=== PATIENT | male | born 1970 | race Caucasian/White ===

== ENCOUNTER 2019-03-28 17:48 | Inpatient (IN) | payer MEDICAID ==
[~2019-03-28] VITALS: Ht 177.8 cm; Wt 114.3 kg
[~2019-03-28 17:48] MED LIST: BUSP15 PO; CLON-570 PO; TERB12CR3
[2019-03-28] MEDS ORDERED: TRAZ-220 PO (21:01)
[2019-03-28] MEDS ORDERED: ALPR1TAB7 PO (21:01)
[2019-03-28] MEDS ORDERED: OLAN10TA3 PO (21:01)
[2019-03-28] MEDS ORDERED: HALOPERIDOL 5 MG TABLET PO PRN (21:15)
[2019-03-28 21:25] VITALS: BP 122/76
[2019-03-28 21:40] VITALS: BP 125/75
[2019-03-28] MEDS ORDERED: GuaiFENesin/D-METHORPHAN [SUGAR-FREE] 200-20MG/10 ML SYRUP UDCUP PO PRN (22:30)
[2019-03-28] MEDS ORDERED: MAG HYDROX/AL HYDROX/SIMETH ES 30 ML SUSPENSION UDCUP PO PRN (22:30)
[2019-03-28] MEDS ORDERED: DOCUSATE SODIUM 100 MG CAPSULE PO PRN (22:30)
[2019-03-28] MEDS ORDERED: ONDANSETRON HCL 4 MG TABLET PO PRN (22:30)
[2019-03-28] MEDS ORDERED: IBUPROFEN 400 MG TABLET PO PRN (22:30)
[2019-03-28] MEDS ORDERED: ACETAMINOPHEN 325 MG TABLET PO PRN (22:30)
[2019-03-28] MEDS ORDERED: NICOTINE 14 MG/24 HOUR PATCH TD PRN (22:30)
[2019-03-28] MEDS ORDERED: ALBUTEROL SULFATE HFA 90 MCG/PUFF 8 GM INHALER IH PRN (22:30)
[2019-03-28] MEDS ORDERED: MAGNESIUM HYDROXIDE SUSPENSION 30 ML UDCUP PO PRN (22:30)
[2019-03-28] MEDS ORDERED: CloNIDine HCL 0.1 MG TABLET PO PRN (22:30)
[2019-03-28] MEDS ORDERED: LOPERAMIDE HCL 2 MG CAPSULE PO PRN (22:30)
[2019-03-28] MEDS ORDERED: PETROLATUM,WHITE 28 GM JELLY TP PRN (22:30)
[2019-03-28] MEDS: LORazepam 2 MG TABLET PO PRN (22:36)
[2019-03-29] MEDS: ZOLPIDEM TARTRATE 10 MG TABLET PO PRN (00:30)
[2019-03-29 01:31] VITALS: BP 139/88
[2019-03-29] MEDS: LORazepam 2 MG TABLET PO PRN ×3 (05:22→16:54)
[2019-03-29 07:46] LABS: BASOPHILS % (AUTO) 0.8 % (0.0-2.0); EOSINOPHILS % (AUTO) 0.9 % (1.0-6.0); HEMATOCRIT 40.8 % (41-53); HEMOGLOBIN 13.2 g/dL (13.5-17.5); LYMPHOCYTES # (AUTO) 2.1 K/uL (1.0-4.8); LYMPHOCYTES % (AUTO) 27.7 % (22.0-44.0); MEAN CORPUSCULAR HGB CONC 32.2 G/dL (31.0-37.0); MEAN CORPUSCULAR VOLUME 87 fL (80-100); MONOCYTES # (AUTO) 0.9 K/uL (0.1-1.0); MONOCYTES % (AUTO) 11.9 % (2.0-9.0); NEUTROPHILS # (AUTO) 4.4 K/uL (1.8-7.7); NEUTROPHILS % (AUTO) 58.7 % (40.0-70.0); PLATELET COUNT (AUTO) 246 K/uL (150-450); RED CELL DISTRIBUTION WIDTH 14.9 % (11.5-14.5)
[2019-03-29 08:03] LABS: HEMOGLOBIN A1C 5.7 % (4.5-6.2)
[2019-03-29 08:13] LABS: ALANINE AMINOTRANSFERASE 29 U/L (12-78); ALKALINE PHOSPHATASE 83 U/L (46-116); ANION GAP 8 mmol/L (8-16); ASPARTATE AMINOTRANSFERASE 21 U/L (15-37); BILIRUBIN,TOTAL 0.5 mg/dL (0.1-1.0); CALCIUM, TOTAL 8.8 mg/dL (8.8-10.5); CARBON DIOXIDE 26 mmol/L (22-29); CHLORIDE 105 mmol/L (98-107); CHOL/HDL RATIO 5.6 (4.2-7.3); CHOLESTEROL 185 mg/dL (131-200); CREATININE 0.94 mg/dL (0.60-1.30); FREE T4 (FREE THYROXINE) 1.18 ng/dL (0.76-1.46); GLOMERULAR FILTR. RATE CALC > 60 mL/min (>60); GLUCOSE,RANDOM 87 mg/dL (70-110); HDL CHOLESTEROL 33 mg/dL (40-60); LDL CHOL (CALC.) 136 mg/dL (0-130); POTASSIUM 4.4 mmol/L (3.5-5.1); SODIUM SERUM 139 mmol/L (136-145); THYROID STIMULATING HORMONE 1.35 uIU/mL (0.36-3.74); TOTAL PROTEIN, SERUM 6.8 g/dL (6.4-8.2); TRIGLYCERIDES 82 mg/dL (15-150); UREA NITROGEN, BLOOD 19 mg/dL (7-18)
[2019-03-29 08:36] VITALS: BP 139/89
[2019-03-29] MEDS: BACITRACIN 28.4 GM OINTMENT TP SCH ×2 (09:39→16:55)
[2019-03-29] MEDS: OLANZapine 10 MG TABLET PO SCH ×2 (11:54→20:41)
[2019-03-29 16:09] VITALS: BP 124/74
[2019-03-30 00:04] VITALS: BP 140/82
[2019-03-30] MEDS: ZOLPIDEM TARTRATE 10 MG TABLET PO PRN ×2 (00:06→21:04)
[2019-03-30] MEDS: LORazepam 2 MG TABLET PO PRN ×4 (00:06→22:13)
[2019-03-30 08:17] VITALS: BP 112/60
[2019-03-30] MEDS: OLANZapine 10 MG TABLET PO SCH ×2 (08:54→20:28)
[2019-03-30] MEDS: BACITRACIN 28.4 GM OINTMENT TP SCH ×2 (08:55→16:49)
[2019-03-30 16:11] VITALS: BP 106/73
[2019-03-31 04:54] VITALS: BP 110/68
[2019-03-31] MEDS: LORazepam 2 MG TABLET PO PRN ×4 (05:24→21:03)
[2019-03-31 08:34] VITALS: BP 116/77
[2019-03-31] MEDS: OLANZapine 10 MG TABLET PO SCH ×2 (09:19→20:39)
[2019-03-31] MEDS: BACITRACIN 28.4 GM OINTMENT TP SCH ×2 (09:19→16:35)
[2019-03-31] MEDS ORDERED: OLANZapine 5 MG TABLET PO ONE (09:45)
[2019-03-31 16:49] VITALS: BP 129/63
[2019-03-31] MEDS: ZOLPIDEM TARTRATE 10 MG TABLET PO PRN (21:54)
[2019-04-01 04:05] VITALS: BP 126/72
[2019-04-01] MEDS: LORazepam 2 MG TABLET PO PRN ×4 (06:06→20:02)
[2019-04-01 08:31] VITALS: BP 111/60
[2019-04-01] MEDS: BACITRACIN 28.4 GM OINTMENT TP SCH ×2 (08:43→16:36)
[2019-04-01] MEDS: OLANZapine 10 MG TABLET PO SCH ×2 (08:43→20:41)
[2019-04-01 16:14] VITALS: BP 112/61
[2019-04-01] MEDS: ZOLPIDEM TARTRATE 10 MG TABLET PO PRN (21:05)
[2019-04-02 02:49] VITALS: BP 130/81
[2019-04-02] MEDS: LORazepam 2 MG TABLET PO PRN (05:33)
[2019-04-02 05:35] VITALS: BP 132/88
[2019-04-02] MEDS: OLANZapine 10 MG TABLET PO SCH (08:31)
[2019-04-02] MEDS: BACITRACIN 28.4 GM OINTMENT TP SCH (08:34)
[2019-04-02 08:39] VITALS: BP 108/73
== END 2019-04-02 10:05 | disposition home or self-care (01) | DRG 750 ==
LOC: B2S 21:23
DX: F25.1 Schizoaffective disorder, depressive type (principal); E78.5 Hyperlipidemia, unspecified; G89.29 Other chronic pain; I10 Essential (primary) hypertension; M19.90 Unspecified osteoarthritis, unspecified site; M51.26 Other intervertebral disc displacement, lumbar region; M54.2 Cervicalgia; M54.9 Dorsalgia, unspecified; Z88.8 Allergy status to other drugs, medicaments and biological substances; Z79.899 Other long term (current) drug therapy
CPT/HCPCS: 83036; 84439; 84443

== ENCOUNTER 2020-08-07 19:02 | Inpatient (IN) | payer MEDICAID, OTHER ==
[~2020-08-07] VITALS: Ht 177.8 cm; Wt 122.6 kg
[~2020-08-07 19:02] MED LIST changes: -BUSP15 PO; -CLON-570 PO; +OLAN10TA3 PO; -TERB12CR3
[2020-08-07] MEDS ORDERED: ZOLPIDEM TARTRATE 10 MG TABLET PO PRN (21:45)
[2020-08-07] MEDS ORDERED: HALOPERIDOL 5 MG TABLET PO PRN (21:45)
[2020-08-07 21:49] LABS: COVID AG,FIA SOURCE NASAL SWAB
[2020-08-07 22:08] LABS: BASOPHILS % (AUTO) 0.6 % (0.0-2.0); EOSINOPHILS % (AUTO) 1.5 % (1.0-6.0); LYMPHOCYTES # (AUTO) 2.7 K/uL (1.0-4.8); LYMPHOCYTES % (AUTO) 27.1 % (22.0-44.0); MEAN CORPUSCULAR HEMOGLOBIN 29.1 pg (26.0-34.0); MEAN CORPUSCULAR HGB CONC 33.4 G/dL (31.0-37.0); MEAN CORPUSCULAR VOLUME 87 fL (80-100); MONOCYTES # (AUTO) 0.8 K/uL (0.1-1.0); MONOCYTES % (AUTO) 7.6 % (2.0-9.0); NEUTROPHILS # (AUTO) 6.3 K/uL (1.8-7.7); NEUTROPHILS % (AUTO) 63.2 % (40.0-70.0); PLATELET COUNT (AUTO) 280 K/uL (150-450); RED BLOOD CELL COUNT(AUTO) 5.16 MIL/uL (4.50-5.90); RED CELL DISTRIBUTION WIDTH 14.8 % (11.5-14.5)
[2020-08-07 22:18] LABS: ANION GAP 7 mmol/L (8-16); CALCIUM, TOTAL 9.7 mg/dL (8.8-10.5); CARBON DIOXIDE 30 mmol/L (22-29); CHLORIDE 105 mmol/L (98-107); GLOMERULAR FILTR. RATE CALC > 60 mL/min (>60); GLUCOSE,RANDOM 101 mg/dL (70-110); POTASSIUM 4.8 mmol/L (3.5-5.1); SODIUM SERUM 142 mmol/L (136-145); UREA NITROGEN, BLOOD 20 mg/dL (7-18)
[2020-08-07 22:23] LABS: ALANINE AMINOTRANSFERASE 56 U/L (12-78); ALBUMIN 3.9 g/dL (3.4-5.0); ALKALINE PHOSPHATASE 106 U/L (46-116); ASPARTATE AMINOTRANSFERASE 26 U/L (15-37); BILIRUBIN,TOTAL 0.6 mg/dL (0.1-1.0); TOTAL PROTEIN, SERUM 7.6 g/dL (6.4-8.2)
[2020-08-07 23:02] LABS: AMPHET/METH SCREEN,URINE NEGATIVE (NEGATIVE); BARBITURATE SCREEN, URINE NEGATIVE (NEGATIVE); BENZODIAZEPINES SCREEN,URINE NEGATIVE (NEGATIVE); CANNABINOID SCREEN,URINE NEGATIVE (NEGATIVE); COCAINE SCREEN,URINE NEGATIVE (NEGATIVE); METHADONE SCREEN, URINE NEGATIVE (NEGATIVE); OPIATE SCREEN,URINE NEGATIVE (NEGATIVE)
[2020-08-07 23:03] LABS: PHENCYCLIDINE SCREEN,URINE NEGATIVE (NEGATIVE)
[2020-08-08 03:05] VITALS: BP 127/77
[2020-08-08] MEDS: LORazepam 2 MG TABLET PO PRN ×2 (03:17→11:44)
[2020-08-08] MEDS ORDERED: INFLUENZA VIRUS VACCINE QVS 2020-21 (6MO+)/PF 60 MCG/0.5 ML SYRINGE IM ONE (03:45)
[2020-08-08] MEDS ORDERED: PNEUMOCOCCAL VACCINE POLYVALENT 0.5 ML VIAL [PPSV23] IM ONE (03:45)
[2020-08-08] MEDS ORDERED: MAGNESIUM HYDROXIDE SUSPENSION 30 ML UDCUP PO PRN (08:00)
[2020-08-08] MEDS ORDERED: NICOTINE 14 MG/24 HOUR PATCH TD PRN (08:00)
[2020-08-08] MEDS ORDERED: LOPERAMIDE HCL 2 MG CAPSULE PO PRN (08:00)
[2020-08-08] MEDS ORDERED: IBUPROFEN 400 MG TABLET PO PRN (08:00)
[2020-08-08] MEDS ORDERED: ALBUTEROL SULFATE HFA 90 MCG/PUFF 8 GM INHALER IH PRN (08:00)
[2020-08-08] MEDS ORDERED: GuaiFENesin/D-METHORPHAN [SUGAR-FREE] 200-20MG/10 ML SYRUP UDCUP PO PRN (08:00)
[2020-08-08] MEDS ORDERED: PETROLATUM,WHITE 28 GM JELLY TP PRN (08:00)
[2020-08-08] MEDS ORDERED: ONDANSETRON HCL 4 MG TABLET PO PRN (08:00)
[2020-08-08] MEDS ORDERED: DOCUSATE SODIUM 100 MG CAPSULE PO PRN (08:00)
[2020-08-08] MEDS ORDERED: CloNIDine HCL 0.1 MG TABLET PO PRN (08:00)
[2020-08-08] MEDS ORDERED: ACETAMINOPHEN 325 MG TABLET PO PRN (08:00)
[2020-08-08 08:07] LABS: CHOL/HDL RATIO 6.4 (4.2-7.3)
[2020-08-08 08:28] VITALS: BP 113/69
[2020-08-08] MEDS: NICOTINE 21 MG/24 HOUR PATCH TD SCH (09:00)
[2020-08-08] MEDS: OLANZapine 10 MG TABLET PO SCH ×2 (11:44→20:04)
[2020-08-08 16:12] VITALS: BP 130/70
[2020-08-08] MEDS: TraZODone HCL 100 MG TABLET PO SCH (20:04)
[2020-08-09 05:19] VITALS: BP 126/74
[2020-08-09 08:04] VITALS: BP 107/68
[2020-08-09] MEDS: NICOTINE 21 MG/24 HOUR PATCH TD SCH (08:33)
[2020-08-09] MEDS: OLANZapine 10 MG TABLET PO SCH ×2 (08:33→20:15)
[2020-08-09 16:05] VITALS: BP 102/65
[2020-08-09] MEDS: TraZODone HCL 100 MG TABLET PO SCH (20:15)
[2020-08-09] MEDS: LORazepam 2 MG TABLET PO PRN (20:15)
[2020-08-10 04:41] VITALS: BP 112/60
[2020-08-10 08:23] VITALS: BP 116/76
[2020-08-10] MEDS: OLANZapine 10 MG TABLET PO SCH ×2 (08:27→20:08)
[2020-08-10] MEDS: LORazepam 2 MG TABLET PO PRN ×3 (08:27→18:34)
[2020-08-10] MEDS: NICOTINE 21 MG/24 HOUR PATCH TD SCH (08:29)
[2020-08-10 16:36] VITALS: BP 119/80
[2020-08-10] MEDS: TraZODone HCL 100 MG TABLET PO SCH (20:08)
[2020-08-11 03:31] VITALS: BP 114/72
[2020-08-11 08:07] VITALS: BP 112/68
[2020-08-11] MEDS: OLANZapine 10 MG TABLET PO SCH ×2 (08:24→20:24)
[2020-08-11] MEDS: NICOTINE 21 MG/24 HOUR PATCH TD SCH (08:25)
[2020-08-11] MEDS: LORazepam 2 MG TABLET PO PRN (16:07)
[2020-08-11 16:30] VITALS: BP 119/68
[2020-08-11] MEDS: TraZODone HCL 100 MG TABLET PO SCH (20:24)
[2020-08-12 05:28] VITALS: BP 126/82
[2020-08-12 08:11] VITALS: BP 111/63
[2020-08-12] MEDS: NICOTINE 21 MG/24 HOUR PATCH TD SCH (08:50)
[2020-08-12] MEDS: OLANZapine 10 MG TABLET PO SCH ×2 (08:50→20:16)
[2020-08-12] MEDS: LORazepam 2 MG TABLET PO PRN ×2 (10:29→16:06)
[2020-08-12 16:16] VITALS: BP 127/66
[2020-08-12] MEDS: TraZODone HCL 100 MG TABLET PO SCH (20:16)
[2020-08-13 05:20] VITALS: BP 115/62
[2020-08-13] MEDS: OLANZapine 10 MG TABLET PO SCH ×2 (08:43→20:10)
[2020-08-13] MEDS: NICOTINE 21 MG/24 HOUR PATCH TD SCH (09:00)
[2020-08-13 09:27] VITALS: BP 115/66
[2020-08-13] MEDS: LORazepam 2 MG TABLET PO PRN ×2 (10:06→16:44)
[2020-08-13] MEDS: MAG HYDROX/AL HYDROX/SIMETH ES 30 ML SUSPENSION UDCUP PO PRN (14:21)
[2020-08-13 16:14] VITALS: BP 124/79
[2020-08-13] MEDS: TraZODone HCL 100 MG TABLET PO SCH (20:10)
[2020-08-14 00:23] VITALS: BP 132/82
[2020-08-14 08:24] VITALS: BP 117/71
[2020-08-14] MEDS: NICOTINE 21 MG/24 HOUR PATCH TD SCH (09:11)
[2020-08-14] MEDS: OMEGA-3/DHA/EPA/FISH OIL 1,000 MG CAPSULE PO SCH (09:11)
[2020-08-14] MEDS: OLANZapine 10 MG TABLET PO SCH ×2 (09:11→20:09)
[2020-08-14] MEDS: LORazepam 2 MG TABLET PO PRN ×2 (09:22→16:52)
[2020-08-14] MEDS: MAG HYDROX/AL HYDROX/SIMETH ES 30 ML SUSPENSION UDCUP PO PRN (14:05)
[2020-08-14 16:00] VITALS: BP 111/77
[2020-08-14] MEDS: TraZODone HCL 100 MG TABLET PO SCH (20:09)
[2020-08-15 04:45] VITALS: BP 123/88
[2020-08-15] MEDS: LORazepam 2 MG TABLET PO PRN ×2 (07:40→16:09)
[2020-08-15] MEDS: NICOTINE 21 MG/24 HOUR PATCH TD SCH (08:10)
[2020-08-15] MEDS: OLANZapine 10 MG TABLET PO SCH ×2 (08:10→20:09)
[2020-08-15] MEDS: OMEGA-3/DHA/EPA/FISH OIL 1,000 MG CAPSULE PO SCH (08:10)
[2020-08-15 08:19] VITALS: BP 124/86
[2020-08-15] MEDS: MAG HYDROX/AL HYDROX/SIMETH ES 30 ML SUSPENSION UDCUP PO PRN (14:16)
[2020-08-15 16:00] VITALS: BP 138/76
[2020-08-15] MEDS: TraZODone HCL 100 MG TABLET PO SCH (20:09)
[2020-08-16 04:16] VITALS: BP 122/78
[2020-08-16 08:10] VITALS: BP 132/81
[2020-08-16] MEDS: OMEGA-3/DHA/EPA/FISH OIL 1,000 MG CAPSULE PO SCH (08:57)
[2020-08-16] MEDS: OLANZapine 10 MG TABLET PO SCH (08:57)
[2020-08-16] MEDS: LORazepam 2 MG TABLET PO PRN (08:57)
[2020-08-16] MEDS: NICOTINE 21 MG/24 HOUR PATCH TD SCH (08:58)
[2020-08-16] MEDS ORDERED: TRAZ-257 PO (09:47)
== END 2020-08-16 12:32 | disposition home or self-care (01) | DRG 750 ==
LOC: EMS 19:04 → B3A 21:35
PROVIDERS: ADMIT Psychiatry & Neurology Psychiatry; ATTEND Psychiatry & Neurology Psychiatry
DX: F25.1 Schizoaffective disorder, depressive type (principal); E78.5 Hyperlipidemia, unspecified; F17.210 Nicotine dependence, cigarettes, uncomplicated; F41.9 Anxiety disorder, unspecified; I10 Essential (primary) hypertension; M19.90 Unspecified osteoarthritis, unspecified site; R45.851 Suicidal ideations; Z20.828 Contact with and (suspected) exposure to other viral communicable diseases; Z59.0 Homelessness; Z91.14 Patient's other noncompliance with medication regimen; Z88.8 Allergy status to other drugs, medicaments and biological substances; Z79.899 Other long term (current) drug therapy; Z28.21 Immunization not carried out because of patient refusal
CPT/HCPCS: 87426; 90686; 90732; G0480

== ENCOUNTER 2020-09-24 08:14 | Inpatient (IN) | payer MEDICAID ==
[~2020-09-24] VITALS: Ht 177.8 cm; Wt 97.3 kg
[~2020-09-24 08:14] MED LIST changes: +TRAZ-257 PO
[2020-09-24] MEDS ORDERED: HALOPERIDOL 5 MG TABLET PO ONE (08:45)
[2020-09-24 08:57] LABS: BASOPHILS % (AUTO) 0.6 % (0.0-2.0); EOSINOPHILS % (AUTO) 1.5 % (1.0-6.0); HEMATOCRIT 39.8 % (41-53); HEMOGLOBIN 13.1 g/dL (13.5-17.5); LYMPHOCYTES # (AUTO) 1.8 K/uL (1.0-4.8); LYMPHOCYTES % (AUTO) 23.4 % (22.0-44.0); MEAN CORPUSCULAR HEMOGLOBIN 29.5 pg (26.0-34.0); MEAN CORPUSCULAR HGB CONC 32.9 G/dL (31.0-37.0); MEAN CORPUSCULAR VOLUME 90 fL (80-100); MONOCYTES # (AUTO) 0.6 K/uL (0.1-1.0); MONOCYTES % (AUTO) 7.4 % (2.0-9.0); NEUTROPHILS # (AUTO) 5.1 K/uL (1.8-7.7); NEUTROPHILS % (AUTO) 67.1 % (40.0-70.0); PLATELET COUNT (AUTO) 213 K/uL (150-450); RED BLOOD CELL COUNT(AUTO) 4.45 MIL/uL (4.50-5.90)
[2020-09-24 09:29] LABS: ANION GAP 6 mmol/L (8-16); CALCIUM, TOTAL 8.5 mg/dL (8.8-10.5); CARBON DIOXIDE 27 mmol/L (22-29); CHLORIDE 107 mmol/L (98-107); CREATININE 1.07 mg/dL (0.60-1.30); GLOMERULAR FILTR. RATE CALC > 60 mL/min (>60); GLUCOSE,RANDOM 98 mg/dL (70-110); POTASSIUM 4.4 mmol/L (3.5-5.1); SODIUM SERUM 140 mmol/L (136-145); UREA NITROGEN, BLOOD 17 mg/dL (7-18)
[2020-09-24 09:35] LABS: ALANINE AMINOTRANSFERASE 25 U/L (12-78); ALBUMIN 3.3 g/dL (3.4-5.0); ALKALINE PHOSPHATASE 87 U/L (46-116); ASPARTATE AMINOTRANSFERASE 22 U/L (15-37); TOTAL PROTEIN, SERUM 6.9 g/dL (6.4-8.2)
[2020-09-24 09:42] LABS: COVID AG,FIA SOURCE NASOPHARYNGEAL
[2020-09-24] MEDS ORDERED: ZOLPIDEM TARTRATE 10 MG TABLET PO PRN (09:45)
[2020-09-24] MEDS ORDERED: LORazepam 2 MG TABLET PO PRN (09:45)
[2020-09-24] MEDS ORDERED: HALOPERIDOL 5 MG TABLET PO PRN (09:45)
[2020-09-24] MEDS ORDERED: IBUPROFEN 400 MG TABLET PO PRN (21:45)
[2020-09-24] MEDS ORDERED: PETROLATUM,WHITE 28 GM JELLY TP PRN (21:45)
[2020-09-24] MEDS ORDERED: LOPERAMIDE HCL 2 MG CAPSULE PO PRN (21:45)
[2020-09-24] MEDS ORDERED: ACETAMINOPHEN 325 MG TABLET PO PRN (21:45)
[2020-09-24] MEDS ORDERED: ONDANSETRON HCL 4 MG TABLET PO PRN (21:45)
[2020-09-24] MEDS ORDERED: DOCUSATE SODIUM 100 MG CAPSULE PO PRN (21:45)
[2020-09-24] MEDS ORDERED: ALBUTEROL SULFATE HFA 90 MCG/PUFF 8 GM INHALER IH PRN (21:45)
[2020-09-24] MEDS ORDERED: NICOTINE 14 MG/24 HOUR PATCH TD PRN (21:45)
[2020-09-24] MEDS ORDERED: GuaiFENesin/D-METHORPHAN [SUGAR-FREE] 200-20MG/10 ML SYRUP UDCUP PO PRN (21:45)
[2020-09-24] MEDS ORDERED: CloNIDine HCL 0.1 MG TABLET PO PRN (21:45)
[2020-09-24] MEDS ORDERED: MAGNESIUM HYDROXIDE SUSPENSION 30 ML UDCUP PO PRN (21:45)
[2020-09-25 08:16] LABS: CHOL/HDL RATIO 5.8 (4.2-7.3)
[2020-09-25 08:29] VITALS: BP 123/62
[2020-09-25] MEDS: OLANZapine 10 MG TABLET PO SCH ×2 (12:29→20:19)
[2020-09-25] MEDS: FLUoxetine HCL 20 MG CAPSULE PO SCH (12:29)
[2020-09-25 16:14] VITALS: BP 103/64
[2020-09-25] MEDS: TraZODone HCL 100 MG TABLET PO SCH (20:19)
[2020-09-26 06:17] VITALS: BP 116/73
[2020-09-26 08:39] VITALS: BP 104/50
[2020-09-26] MEDS: OLANZapine 10 MG TABLET PO SCH ×2 (08:54→20:25)
[2020-09-26] MEDS: FLUoxetine HCL 20 MG CAPSULE PO SCH (08:54)
[2020-09-26 16:19] VITALS: BP 112/72
[2020-09-26] MEDS: TraZODone HCL 100 MG TABLET PO SCH (20:25)
[2020-09-27 05:40] VITALS: BP 122/92
[2020-09-27 08:38] VITALS: BP 120/53
[2020-09-27] MEDS: OLANZapine 10 MG TABLET PO SCH ×2 (10:13→20:50)
[2020-09-27] MEDS: FLUoxetine HCL 20 MG CAPSULE PO SCH (10:13)
[2020-09-27 16:23] VITALS: BP 126/77
[2020-09-27] MEDS: TraZODone HCL 100 MG TABLET PO SCH (20:50)
[2020-09-28 06:17] VITALS: BP 127/82
[2020-09-28 08:38] VITALS: BP 124/78
[2020-09-28] MEDS: OLANZapine 10 MG TABLET PO SCH ×2 (08:42→20:40)
[2020-09-28] MEDS: FLUoxetine HCL 20 MG CAPSULE PO SCH (08:42)
[2020-09-28 16:17] VITALS: BP 127/84
[2020-09-28] MEDS: BACITRACIN 28 GM OINTMENT TP SCH (18:03)
[2020-09-28] MEDS: TraZODone HCL 100 MG TABLET PO SCH (20:40)
[2020-09-29 00:51] VITALS: BP 122/78
[2020-09-29 08:07] LABS: COVID AG,FIA SOURCE NASAL SWAB
[2020-09-29 08:23] VITALS: BP 117/73
[2020-09-29] MEDS: BACITRACIN 28 GM OINTMENT TP SCH ×2 (08:37→16:46)
[2020-09-29] MEDS: OLANZapine 10 MG TABLET PO SCH ×2 (08:38→20:54)
[2020-09-29] MEDS: FLUoxetine HCL 20 MG CAPSULE PO SCH (08:38)
[2020-09-29 16:27] VITALS: BP 133/76
[2020-09-29] MEDS: TraZODone HCL 100 MG TABLET PO SCH (20:54)
[2020-09-30 01:05] VITALS: BP 122/77
[2020-09-30 08:27] VITALS: BP 113/78
[2020-09-30] MEDS: FLUoxetine HCL 20 MG CAPSULE PO SCH (08:28)
[2020-09-30] MEDS: OLANZapine 10 MG TABLET PO SCH ×2 (08:28→20:11)
[2020-09-30] MEDS: BACITRACIN 28 GM OINTMENT TP SCH ×2 (08:29→17:09)
[2020-09-30 16:11] VITALS: BP 121/75
[2020-09-30] MEDS: MAG HYDROX/AL HYDROX/SIMETH ES 30 ML SUSPENSION UDCUP PO PRN (18:24)
[2020-09-30] MEDS: TraZODone HCL 100 MG TABLET PO SCH (20:12)
[2020-10-01 05:59] VITALS: BP 124/78
[2020-10-01] MEDS: BACITRACIN 28 GM OINTMENT TP SCH ×2 (08:22→16:17)
[2020-10-01] MEDS: OLANZapine 10 MG TABLET PO SCH ×2 (08:22→20:05)
[2020-10-01] MEDS: FLUoxetine HCL 20 MG CAPSULE PO SCH (08:22)
[2020-10-01 08:35] VITALS: BP 109/64
[2020-10-01] MEDS: MAG HYDROX/AL HYDROX/SIMETH ES 30 ML SUSPENSION UDCUP PO PRN (10:47)
[2020-10-01 16:27] VITALS: BP 138/74
[2020-10-01] MEDS: TraZODone HCL 100 MG TABLET PO SCH (20:05)
[2020-10-02 06:44] VITALS: BP 110/67
[2020-10-02] MEDS: OLANZapine 10 MG TABLET PO SCH ×2 (08:16→20:17)
[2020-10-02] MEDS: FLUoxetine HCL 20 MG CAPSULE PO SCH (08:16)
[2020-10-02] MEDS: BACITRACIN 28 GM OINTMENT TP SCH ×2 (08:16→17:02)
[2020-10-02 08:41] VITALS: BP 120/85
[2020-10-02 16:26] VITALS: BP 127/88
[2020-10-02] MEDS: MAG HYDROX/AL HYDROX/SIMETH ES 30 ML SUSPENSION UDCUP PO PRN (19:45)
[2020-10-02] MEDS: TraZODone HCL 100 MG TABLET PO SCH (20:16)
[2020-10-03 06:26] VITALS: BP 125/68
[2020-10-03] MEDS: OLANZapine 10 MG TABLET PO SCH ×2 (08:24→20:11)
[2020-10-03] MEDS: FLUoxetine HCL 20 MG CAPSULE PO SCH (08:24)
[2020-10-03] MEDS: BACITRACIN 28 GM OINTMENT TP SCH ×2 (08:28→16:57)
[2020-10-03 08:38] VITALS: BP 119/68
[2020-10-03 16:12] VITALS: BP 117/79
[2020-10-03] MEDS: TraZODone HCL 100 MG TABLET PO SCH (20:11)
[2020-10-04 01:13] VITALS: BP 118/67
[2020-10-04] MEDS: BACITRACIN 28 GM OINTMENT TP SCH ×2 (08:28→17:38)
[2020-10-04] MEDS: OLANZapine 10 MG TABLET PO SCH ×2 (08:28→20:40)
[2020-10-04] MEDS: FLUoxetine HCL 20 MG CAPSULE PO SCH (08:28)
[2020-10-04 08:37] VITALS: BP 108/70
[2020-10-04 16:24] VITALS: BP 117/75
[2020-10-04] MEDS: MAG HYDROX/AL HYDROX/SIMETH ES 30 ML SUSPENSION UDCUP PO PRN (16:32)
[2020-10-04] MEDS: TraZODone HCL 100 MG TABLET PO SCH (20:40)
[2020-10-05 01:07] VITALS: BP 110/70
[2020-10-05 08:54] VITALS: BP 124/68
[2020-10-05] MEDS: FLUoxetine HCL 20 MG CAPSULE PO SCH (09:57)
[2020-10-05] MEDS: OLANZapine 10 MG TABLET PO SCH ×2 (09:57→20:43)
[2020-10-05] MEDS: BACITRACIN 28 GM OINTMENT TP SCH ×2 (09:59→16:58)
[2020-10-05 16:11] VITALS: BP 120/61
[2020-10-05] MEDS: TraZODone HCL 100 MG TABLET PO SCH (20:43)
[2020-10-06 01:08] VITALS: BP 109/64
[2020-10-06 08:19] VITALS: BP 113/69
[2020-10-06] MEDS: FLUoxetine HCL 20 MG CAPSULE PO SCH (09:00)
[2020-10-06] MEDS: OLANZapine 10 MG TABLET PO SCH ×2 (09:00→20:44)
[2020-10-06] MEDS: BACITRACIN 28 GM OINTMENT TP SCH ×2 (09:00→17:26)
[2020-10-06] MEDS: LORazepam 1 MG TABLET PO PRN (14:53)
[2020-10-06 16:14] VITALS: BP 135/80
[2020-10-06] MEDS: TraZODone HCL 100 MG TABLET PO SCH (20:44)
[2020-10-07 06:50] VITALS: BP 115/83
[2020-10-07 08:35] VITALS: BP 137/89
[2020-10-07] MEDS: BACITRACIN 28 GM OINTMENT TP SCH ×2 (09:00→16:45)
[2020-10-07] MEDS: LORazepam 1 MG TABLET PO PRN ×2 (10:03→17:38)
[2020-10-07] MEDS: OLANZapine 10 MG TABLET PO SCH ×2 (10:03→20:37)
[2020-10-07] MEDS: FLUoxetine HCL 20 MG CAPSULE PO SCH (10:03)
[2020-10-07 16:28] VITALS: BP 128/78
[2020-10-07] MEDS: TraZODone HCL 100 MG TABLET PO SCH (20:37)
[2020-10-08 06:15] VITALS: BP 132/77
[2020-10-08 08:14] VITALS: BP 111/69
[2020-10-08] MEDS: FLUoxetine HCL 20 MG CAPSULE PO SCH (10:06)
[2020-10-08] MEDS: OLANZapine 10 MG TABLET PO SCH ×2 (10:07→20:27)
[2020-10-08] MEDS: BACITRACIN 28 GM OINTMENT TP SCH ×2 (10:08→17:43)
[2020-10-08 10:39] LABS: COVID AG,FIA SOURCE NASOPHARYNGEAL
[2020-10-08] MEDS: LORazepam 1 MG TABLET PO PRN ×2 (11:26→18:37)
[2020-10-08 16:13] VITALS: BP 113/71
[2020-10-08] MEDS: MAG HYDROX/AL HYDROX/SIMETH ES 30 ML SUSPENSION UDCUP PO PRN (19:15)
[2020-10-08] MEDS: TraZODone HCL 100 MG TABLET PO SCH (20:27)
[2020-10-09 06:27] VITALS: BP 115/70
[2020-10-09 08:26] VITALS: BP 115/66
[2020-10-09] MEDS: OLANZapine 10 MG TABLET PO SCH ×2 (09:10→20:27)
[2020-10-09] MEDS: FLUoxetine HCL 20 MG CAPSULE PO SCH (09:10)
[2020-10-09] MEDS: BACITRACIN 28 GM OINTMENT TP SCH ×2 (09:10→17:03)
[2020-10-09] MEDS: LORazepam 1 MG TABLET PO PRN (09:31)
[2020-10-09 17:38] VITALS: BP 119/66
[2020-10-09] MEDS: TraZODone HCL 100 MG TABLET PO SCH (20:27)
[2020-10-10 01:06] VITALS: BP 127/68
[2020-10-10] MEDS: OLANZapine 10 MG TABLET PO SCH ×2 (08:01→20:44)
[2020-10-10] MEDS: FLUoxetine HCL 20 MG CAPSULE PO SCH (08:01)
[2020-10-10] MEDS: LORazepam 1 MG TABLET PO PRN ×2 (08:02→17:21)
[2020-10-10] MEDS: BACITRACIN 28 GM OINTMENT TP SCH ×2 (08:03→16:22)
[2020-10-10 09:07] VITALS: BP 122/76
[2020-10-10 17:29] VITALS: BP 113/66
[2020-10-10] MEDS: TraZODone HCL 100 MG TABLET PO SCH (20:43)
[2020-10-11 00:57] VITALS: BP 117/72
[2020-10-11 08:47] VITALS: BP 118/63
[2020-10-11] MEDS: LORazepam 1 MG TABLET PO PRN ×2 (09:34→16:49)
[2020-10-11] MEDS: FLUoxetine HCL 20 MG CAPSULE PO SCH (09:34)
[2020-10-11] MEDS: OLANZapine 10 MG TABLET PO SCH ×2 (09:34→20:26)
[2020-10-11] MEDS: BACITRACIN 28 GM OINTMENT TP SCH ×2 (09:36→16:55)
[2020-10-11] MEDS: MAG HYDROX/AL HYDROX/SIMETH ES 30 ML SUSPENSION UDCUP PO PRN (14:23)
[2020-10-11 17:44] VITALS: BP 109/68
[2020-10-11] MEDS: TraZODone HCL 100 MG TABLET PO SCH (20:26)
[2020-10-12 00:51] VITALS: BP 122/75
[2020-10-12 08:47] VITALS: BP 135/81
[2020-10-12] MEDS: LORazepam 1 MG TABLET PO PRN ×2 (09:16→16:34)
[2020-10-12] MEDS: FLUoxetine HCL 20 MG CAPSULE PO SCH (09:16)
[2020-10-12] MEDS: OLANZapine 10 MG TABLET PO SCH ×2 (09:16→20:06)
[2020-10-12] MEDS: BACITRACIN 28 GM OINTMENT TP SCH ×2 (10:28→16:34)
[2020-10-12 16:25] VITALS: BP 109/70
[2020-10-12] MEDS: MAG HYDROX/AL HYDROX/SIMETH ES 30 ML SUSPENSION UDCUP PO PRN (16:45)
[2020-10-12] MEDS: TraZODone HCL 100 MG TABLET PO SCH (20:06)
[2020-10-13 05:28] VITALS: BP 113/68
[2020-10-13 08:44] VITALS: BP 108/76
[2020-10-13] MEDS: LORazepam 1 MG TABLET PO PRN ×2 (08:54→16:27)
[2020-10-13] MEDS: FLUoxetine HCL 20 MG CAPSULE PO SCH (08:54)
[2020-10-13] MEDS: OLANZapine 10 MG TABLET PO SCH ×2 (08:54→21:32)
[2020-10-13] MEDS: BACITRACIN 28 GM OINTMENT TP SCH ×2 (09:16→16:28)
[2020-10-13] MEDS: MAG HYDROX/AL HYDROX/SIMETH ES 30 ML SUSPENSION UDCUP PO PRN (09:48)
[2020-10-13 16:18] VITALS: BP 135/80
[2020-10-13] MEDS: TraZODone HCL 100 MG TABLET PO SCH (21:32)
[2020-10-14] MEDS: LORazepam 1 MG TABLET PO PRN ×2 (06:10→09:26)
[2020-10-14 06:25] VITALS: BP 124/68
[2020-10-14] MEDS ORDERED: OMEPRAZOLE 20 MG CAPSULE PO SCH (06:30)
[2020-10-14 08:55] VITALS: BP 129/70
[2020-10-14] MEDS: OLANZapine 10 MG TABLET PO SCH (09:26)
[2020-10-14] MEDS: FLUoxetine HCL 20 MG CAPSULE PO SCH (09:26)
[2020-10-14] MEDS: BACITRACIN 28 GM OINTMENT TP SCH (09:45)
[2020-10-14] MEDS ORDERED: FLUO-191 PO (10:18)
== END 2020-10-14 10:30 | disposition home or self-care (01) | DRG 750 ==
LOC: EMS 08:30 → B2S 09:55
DX: F25.1 Schizoaffective disorder, depressive type (principal); F10.10 Alcohol abuse, uncomplicated; F17.200 Nicotine dependence, unspecified, uncomplicated; I10 Essential (primary) hypertension; M19.90 Unspecified osteoarthritis, unspecified site; R45.851 Suicidal ideations; Z59.0 Homelessness; Z79.899 Other long term (current) drug therapy; Z91.5 Personal history of self-harm; Z20.828 Contact with and (suspected) exposure to other viral communicable diseases; Z88.8 Allergy status to other drugs, medicaments and biological substances
CPT/HCPCS: 87426; G0480

== ENCOUNTER 2020-09-30 14:30 | Emergency (ER) | payer MEDICAID ==
[~2020-09-30] VITALS: Ht 175.3 cm; Wt 250.0 kg
[2020-09-30 15:03] VITALS: BP 135/69
== END 2020-09-30 15:19 | disposition home or self-care (01) ==
LOC: EMS 14:30
DX: S01.01XD Laceration without foreign body of scalp, subsequent encounter (principal); F32.9 Major depressive disorder, single episode, unspecified; F20.9 Schizophrenia, unspecified; F17.210 Nicotine dependence, cigarettes, uncomplicated; Z88.8 Allergy status to other drugs, medicaments and biological substances; Z79.899 Other long term (current) drug therapy; X58.XXXD Exposure to other specified factors, subsequent encounter